=== PATIENT | female | born 1990 | race African-American/Black ===

== ENCOUNTER 2017-02-18 22:43 | Emergency (ER) | payer SELFPAY ==
[~2017-02-18] VITALS: Ht 162.6 cm; Wt 61.2 kg
[2017-02-18] MEDS ORDERED: PRENATAL VITAM1 EACH PO (22:53)
[2017-02-18 23:00] VITALS: BP 130/74
[2017-02-18] MEDS ORDERED: Norco 5mg/325mg tab ORAL ONE (23:15)
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
[2017-02-19 01:05] VITALS: BP 128/73
--- NOTE | 2017-02-22 09:18 | Diagnostic Imaging Report ---
Indication: Head trauma. Headache Technique: Contiguous 5 mm thick transaxial imaging of the head obtained in a Siemens Sensation [address] scanner. Soft tissue and bone windows generated. Total Dose length Product (DLP): [address] Dose Index Volume (CTDIvol): 70.38 mGy Comparison: none Findings: The size and configuration of the cortical sulci, basal cisterns, and ventricles are within normal limits for age. There is no mass effect, midline shift, or edema identified. There is no evidence of acute hemorrhage or abnormal intra-axial or extra-axial fluid collections. Bones are intact. There is swelling of the scalp in the left frontal region. Impression: No mass effect, edema or acute bleed. Scalp contusion The CT scanner at [facility] is accredited by the [employer] and the scans are performed using dose optimization techniques as appropriate to a performed exam including Automatic Exposure control.
== END 2017-02-19 01:05 | disposition home or self-care (01) ==
LOC: EMR 23:14
DX: O26.891 Other specified pregnancy related conditions, first trimester (principal); S01.81XA Laceration without foreign body of other part of head, initial encounter; S00.03XA Contusion of scalp, initial encounter; Y04.2XXA Assault by strike against or bumped into by another person, initial encounter; Y92.410 Unspecified street and highway as the place of occurrence of the external cause; Z88.0 Allergy status to penicillin
CPT/HCPCS: 70450

== ENCOUNTER 2017-04-04 15:35 | Emergency (ER) | payer MEDICAID ==
[~2017-04-04] VITALS: Ht 162.6 cm; Wt 63.5 kg
[~2017-04-04 15:35] MED LIST: PRENATAL VITAM1 EACH PO
[2017-04-04 17:01] VITALS: BP 145/96
[2017-04-04 17:01] LABS: APPEARANCE,URINE CLEAR; KETONES,URINE 1+ (NEGATIVE); LEUKOCYTE ESTERASE ,URINE 1+ (NEGATIVE); NITRITE,URINE NEGATIVE (NEGATIVE); PH,URINE 6 (4.5-8.0); PROTEIN,URINE 3+ (NEGATIVE); UROBILINOGEN,URINE 4 MG/DL (0.0-1.0)
[2017-04-04 17:12] LABS: BASOPHILS % (AUTO) 1.5 % (0.0-2.0); EOSINOPHILS % (AUTO) 1.6 % (0.0-3.0); MEAN CORPUSCULAR HEMOGLOBIN 31.6 PG (27.0-31.0); MEAN CORPUSCULAR HGB CONC 33.8 G/DL (32.0-36.0); MEAN CORPUSCULAR VOLUME 93 FL (80-99); MEAN PLATELET VOLUME 6.2 FL (6.5-10.1); MONOCYTES % (AUTO) 6.7 % (1.0-10.0); NEUTROPHILS % (AUTO) 74.3 % (45.0-75.0); PLATELET COUNT 240 K/UL (150-450); RED BLOOD COUNT 3.52 M/UL (4.20-5.40); RED CELL DISTRIBUTION WIDTH 13.9 % (11.6-14.8); WHITE BLOOD COUNT 6.1 K/UL (4.8-10.8)
[2017-04-04 17:22] LABS: ALANINE AMINOTRANSFERASE 12 U/L (3-33); ANION GAP 10 (5-15); ASPARTATE AMINO TRANSFERASE 19 U/L (5-40); CALCIUM 9.6 mg/dL (8.6-10.2); CARBON DIOXIDE 23 mEQ/L (20-30); CHLORIDE 103 mEQ/L (98-107); CREATININE 0.7 mg/dL (0.5-0.9); GLOMERULAR FILTRATION RATE > 60 mL/min (>60); HEMOLYSIS 1; POTASSIUM 3.7 mEQ/L (3.4-4.9); SODIUM 136 mEQ/L (135-145); TOTAL PROTEIN 6.6 g/dL (6.6-8.7)
[2017-04-04 17:25] LABS: BACTERIA,URINE MODERATE /HPF; ICTOTEST NEGATIVE; SQUAMOUS EPITHELIAL CELL,UR FEW /LPF (NONE/OCC)
[2017-04-04] MEDS ORDERED: KEFLEX250 M1 PO (17:34)
[2017-04-04 17:41] VITALS: BP 145/96
--- NOTE | 2017-04-04 20:27 | Emergency Room Report ---
History of Present Illness General Chief Complaint: Edema Source: Patient Present Illness [facility] The patient is a 18-year-old female presenting for lower, pain and swelling of the extremities. Pt is at 4 months gestation. The patient states that she last had an ultrasound one week prior when symptoms began which was unremarkable. Pain is described as a 4-10 dull ache and does not radiate. No known provoking or relieving factors. She denies nausea, vomiting, fever, chills, abdominal cramping, dysuria, vaginal discharge, vaginal bleeding, constipation, diarrhea, SHERMAN, dizziness, CP, SOB Allergies: Coded Allergies: PENICILLINS (Verified Allergy, Unknown, 12/27/15) Patient History Past Medical History: see triage record Pertinent Family History: none Last Menstrual Period: 10/2016 Now: Yes - 4.5months : 2 Para: 1 Reviewed Nursing Documentation: PMH: Agreed, PSxH: Agreed Nursing Documentation-PMH Past Medical History: No Stated History Review of Systems All Other Systems: negative except mentioned in HPI Physical Exam Vital Signs Date Time Temp Pulse Resp B/P Pulse Ox O2 Delivery O2 Flow Rate FiO2 04/04/17 15:39 98.6 79 14 141/98 98 Room Air Sp02 EP Interpretation: reviewed, normal General Appearance: no apparent distress, alert, GCS 15, non-toxic Head: normocephalic, atraumatic Eyes: bilateral eye PERRL, bilateral eye normal inspection ENT: hearing grossly normal, normal pharynx, no angioedema, normal voice Neck: full range of motion, supple/symm/no masses Respiratory: chest non-tender, lungs clear, normal breath sounds, speaking full sentences Cardiovascular #1: regular rate, rhythm, no edema Gastrointestinal: no guarding, no hernia, no pulsatile mass, no rebound, tenderness - suprapubic Genitourinary: normal inspection, no CVA tenderness Musculoskeletal: back normal, gait/station normal, normal range of motion, non- tender Neurologic: alert, oriented x3, responsive, motor strength/tone normal, sensory intact, speech normal Psychiatric: judgement/insight normal, memory normal, mood/affect normal, no suicidal/homicidal ideation Skin: other - 1+ non pitting edema to bilat hands and feet Lymphatic: no adenopathy Medical Decision Making PA Attestation Dr. Alcaraz is my supervising physician. Patient management was discussed with my supervising physician Diagnostic Impression: Primary Impression: Urinary tract infection during in second trimester, ... ER Course The patient is a 18-year-old female presenting for lower, pain and swelling of the extremities. Differential diagnoses considered include but not limited to UTI, threatened , pre-eclampsia, among others PE: Hypertensive. otherwise unremarkable NAD Abd is soft. TTP over the suprapubic region only. No CVA tenderness. 1+ non pitting edema to bilat hands and feet. RRR. Lungs CTA bilat Urinalysis is consistent with urinary tract infection The patient will be treated with Keflex and is discharged home. She is to follow up with LIQUOR GALLERY OPERATOR CLAUDIA. She was informed of these results including high blood pressure Laboratory Tests Test 04/04/17 16:40 04/04/17 16:47 Urine Color Brown Urine Appearance Clear Urine pH 6 (4.5-8.0) Urine Specific [place] 1.020 (1.005-1.035) Urine Protein 3+ (NEGATIVE) H Urine Glucose (UA) Negative (NEGATIVE) Urine Ketones 1+ (NEGATIVE) H Urine Occult Blood 2+ (NEGATIVE) H Urine Nitrite Negative (NEGATIVE) Urine Bilirubin 1+ (NEGATIVE) H Urine Ictotest Negative Urine Urobilinogen 4 MG/DL (0.0-1.0) H Urine Leukocyte Esterase 1+ (NEGATIVE) H Urine RBC 5-10 /HPF (0 - 2) H Urine WBC 2-4 /HPF (0 - 2) Urine Squamous Epithelial Cells Few /LPF (NONE/OCC) Urine Bacteria Moderate /HPF (NONE) H White Blood Count 6.1 K/UL (4.8-10.8) Red Blood Count 3.52 M/UL (4.20-5.40) L Hemoglobin 11.1 G/DL (12.0-16.0) L Hematocrit 32.9 % (37.0-47.0) L Mean Corpuscular Volume 93 FL (80-99) Mean Corpuscular Hemoglobin 31.6 PG (27.0-31.0) H Mean Corpuscular Hemoglobin Concent 33.8 G/DL (32.0-36.0) Red Cell Distribution Width 13.9 % (11.6-14.8) Platelet Count 240 K/UL (150-450) Mean Platelet Volume 6.2 FL (6.5-10.1) L Neutrophils (%) (Auto) 74.3 % (45.0-75.0) Lymphocytes (%) (Auto) 16.0 % (20.0-45.0) L Monocytes (%) (Auto) 6.7 % (1.0-10.0) Eosinophils (%) (Auto) 1.6 % (0.0-3.0) Basophils (%) (Auto) 1.5 % (0.0-2.0) Sodium Level 136 mEQ/L (135-145) Potassium Level 3.7 mEQ/L (3.4-4.9) Chloride Level 103 mEQ/L (98-107) Carbon Dioxide Level 23 mEQ/L (20-30) Anion Gap 10 (5-15) Blood Urea Nitrogen 11 mg/dL (7-23) Creatinine 0.7 mg/dL (0.5-0.9) Estimate Glomerular Filtration Rate > 60 mL/min (>60) Glucose Level 79 mg/dL (74-106) Calcium Level 9.6 mg/dL (8.6-10.2) Total Bilirubin 0.4 mg/dL (0.0-1.2) Aspartate Amino Transferase (AST) 19 U/L (5-40) Alanine Aminotransferase (ALT) 12 U/L (3-33) Alkaline Phosphatase 36 U/L (35-104) Total Protein 6.6 g/dL (6.6-8.7) Albumin 3.4 g/dL (3.5-5.2) L Globulin 3.2 g/dL Albumin/Globulin Ratio 1.0 (1.0-2.7) Lab Results Impression Consistent with UTI Last Vital Signs Date Time Temp Pulse Resp B/P Pulse Ox O2 Delivery O2 Flow Rate FiO2 04/04/17 17:41 98.5 14 145/96 99 Room Air 04/04/17 17:02 79 Status: improved Disposition: HOME, SELF-CARE Condition: Improved Scripts Cephalexin (Keflex) 250 Mg Capsule 250 MG PO Q6HR, #28 CAP Prov: FARHAT BRIONES 04/04/17 Patient Instructions: and Urinary Tract Infection, Second Trimester of Additional Instructions: I discussed my findings with the patient. All questions and concerns have been answered. Treatment and medication compliance have been addressed. I advised the patient that they need to follow up with PMD in 3-5 days. Return to ED if symptoms worsen, new symptoms arise, or if needed for any reason. Patient verbalized understanding of discharge instructions. Please follow up with FARHAT RIVERA Apr 04, 2017 20:27
== END 2017-04-04 17:42 | disposition home or self-care (01) ==
LOC: EMR 15:51
DX: O23.42 Unspecified infection of urinary tract in pregnancy, second trimester (principal); Z3A.00 Weeks of gestation of pregnancy not specified; Z88.0 Allergy status to penicillin
CPT/HCPCS: 36415; 80053; 81003; 85025; 87086; 99283

== ENCOUNTER 2018-03-28 18:54 | Emergency (ER) | payer MEDICAID ==
[~2018-03-28] VITALS: Ht 162.6 cm; Wt 66.2 kg
[~2018-03-28 18:54] MED LIST changes: +KEFLEX250 M1 PO
--- NOTE | 2018-03-28 19:36 | Emergency Room Report ---
History of Present Illness General Chief Complaint: Complications Source: Patient Present Illness HPI 27-year-old female, , one miscarriage, 13 wks p/w vaginal bleeding x 1 days Patient states bleeding began day, only spotting, no passage of clots. + Mild crampy abdominal pain. Denies fever, chills, n/v, diarrhea, dysuria. Last sono was performed in the last 3 weeks which showed IUP with good FHR. Denies hx of ectopic pregnancies. Patient also noted to have slightly high blood pressure. She states that she had preeclampsia and her last . Allergies: Coded Allergies: PENICILLINS (Verified Allergy, Unknown, 12/27/15) Patient History Past Medical History: see triage record Past Surgical History: none Pertinent Family History: none Last Menstrual Period: 01/11 Now: Yes : 3 Para: 1 Reviewed Nursing Documentation: PMH: Agreed; PSxH: Agreed Nursing Documentation-PMH Past Medical History: No History, Except For Review of Systems All Other Systems: negative except mentioned in HPI Physical Exam Vital Signs Date Time Temp Pulse Resp B/P (MAP) Pulse Ox O2 Delivery O2 Flow Rate FiO2 03/28/18 18:59 98.4 86 17 152/92 96 Room Air 98.4 Sp02 EP Interpretation: reviewed, normal General Appearance: alert, GCS 15, non-toxic, mild distress Head: normocephalic, atraumatic Eyes: bilateral eye normal inspection, bilateral eye PERRL, bilateral eye EOMI ENT: normal ENT inspection, normal pharynx, normal voice, moist mucus membranes Neck: normal inspection, full range of motion, supple Respiratory: normal inspection, lungs clear, normal breath sounds, no respiratory distress, no retraction, no wheezing, speaking full sentences, chest symmetrical Cardiovascular #1: normal inspection, regular rate, rhythm, no edema, normal capillary refill Cardiovascular #2: 2+ radial (R), 2+ radial (L) Gastrointestinal: other - Gravid, nontender throughout no guarding or rigidity Musculoskeletal: normal inspection, back normal, normal range of motion, non- tender Neurologic: normal inspection, alert, oriented x3, responsive, motor strength/ tone normal, sensory intact, normal gait, speech normal Psychiatric: normal inspection, judgement/insight normal, memory normal Skin: normal inspection, normal color, no rash, warm/dry, well hydrated, normal turgor Medical Decision Making Diagnostic Impression: Primary Impression: Anemia Additional Impressions: High blood pressure Urinary tract infection during in second trimester, antepartum Vaginal bleeding during ER Course 27-year-old female 13 presents with vaginal bleeding DDX: Threatened / inevitable vs. ectopic Plan: cbc, bmp, bhcg, type and screen, ua, ucx pelvic sono Consider Rhogam is Rh- ER course: Blood pressure improved Pelvic sono: IUP with good FHR. Pt remains stable/nontoxic appearing in ED. Minimal vaginal bleeding in ED. Pt has been ambulatory. VSS Patient noted to have some mild anemia, patient denies any syncopal episodes no increasing fatigue. She states that her doctor has been running tests for her anemia. She was also noted to be hypertensive with a systolic of 150, currently asymptomatic no headache no blurry vision. I told her that she must follow-up with her ENGINEER TECHNICAL STAFF for this blood pressure Disposition: Patient will be discharged to home. Strict return precautions to discussed with patient such as high fever, chills, headache, abdominal pain, intractable nausea or vomiting, worsening/heavy bleeding, lightheadedness or syncope. Patient verbalized understanding. Patient instructed to follow up with her OBGYN in 2-3 days without fail. Patient agrees with plan. Please note that this Emergency Department Report was dictated using [employer] tender concrete mixing plant technology software, occasionally this can lead to erroneous entry secondary to interpretation by the dictation equipment. Laboratory Tests Test 03/28/18 19:06 03/28/18 19:30 Urine Color Yellow Urine Appearance Slightly cloudy Urine pH 6 (4.5-8.0) Urine Specific [place] 1.015 (1.005-1.035) Urine Protein 1+ (NEGATIVE) H Urine Glucose (UA) Negative (NEGATIVE) Urine Ketones 4+ (NEGATIVE) H Urine Occult Blood Negative (NEGATIVE) Urine Nitrite Negative (NEGATIVE) Urine Bilirubin Negative (NEGATIVE) Urine Urobilinogen Normal MG/DL (0.0-1.0) Urine Leukocyte Esterase 1+ (NEGATIVE) H Urine RBC 0-2 /HPF (0 - 2) Urine WBC 5-10 /HPF (0 - 2) H Urine Squamous Epithelial Cells Many /LPF (NONE/OCC) H Urine Bacteria Few /HPF (NONE) Urine HCG, Qualitative Positive (NEGATIVE) White Blood Count 7.7 K/UL (4.8-10.8) Red Blood Count 3.58 M/UL (4.20-5.40) L Hemoglobin 9.9 G/DL (12.0-16.0) L Hematocrit 30.7 % (37.0-47.0) L Mean Corpuscular Volume 86 FL (80-99) Mean Corpuscular Hemoglobin 27.8 PG (27.0-31.0) Mean Corpuscular Hemoglobin Concent 32.4 G/DL (32.0-36.0) Red Cell Distribution Width 14.3 % (11.6-14.8) Platelet Count 262 K/UL (150-450) Mean Platelet Volume 5.8 FL (6.5-10.1) L Neutrophils (%) (Auto) 79.9 % (45.0-75.0) H Lymphocytes (%) (Auto) 13.5 % (20.0-45.0) L Monocytes (%) (Auto) 5.9 % (1.0-10.0) Eosinophils (%) (Auto) 0.1 % (0.0-3.0) Basophils (%) (Auto) 0.6 % (0.0-2.0) Sodium Level 134 MMOL/L (136-145) L Potassium Level 3.2 MMOL/L (3.5-5.1) L Chloride Level 103 MMOL/L (98-107) Carbon Dioxide Level 23 MMOL/L (21-32) Anion Gap 8 mmol/L (5-15) Blood Urea Nitrogen 7 mg/dL (7-18) Creatinine 0.5 MG/DL (0.55-1.30) L Estimate Glomerular Filtration Rate > 60 mL/min (>60) Glucose Level 81 MG/DL (74-106) Calcium Level 8.7 MG/DL (8.5-10.1) Total Bilirubin 0.3 MG/DL (0.2-1.0) Aspartate Amino Transferase (AST) 20 U/L (15-37) Alanine Aminotransferase (ALT) 17 U/L (12-78) Alkaline Phosphatase 44 U/L (46-116) L Total Protein 7.5 G/DL (6.4-8.2) Albumin 3.2 G/DL (3.4-5.0) L Globulin 4.3 g/dL Albumin/Globulin Ratio 0.7 (1.0-2.7) L Lipase 89 U/L (73-393) Human Chorionic Gonadotropin, Quant Pending CT/MRI/US Diagnostic Results CT/MRI/US Diagnostic Results : Imaging Test Ordered: PELVIC US Last Vital Signs Date Time Temp Pulse Resp B/P (MAP) Pulse Ox O2 Delivery O2 Flow Rate FiO2 03/28/18 18:59 98.4 86 17 152/92 96 Room Air 98.4 Disposition: HOME, SELF-CARE Condition: Improved Chen Platt M.D. Mar 28, 2018 19:36
[2018-03-28 19:45] LABS: BASOPHILS % (AUTO) 0.6 % (0.0-2.0); EOSINOPHILS % (AUTO) 0.1 % (0.0-3.0); HEMATOCRIT 30.7 % (37.0-47.0); HEMOGLOBIN 9.9 G/DL (12.0-16.0); LYMPHOCYTES % (AUTO) 13.5 % (20.0-45.0); MEAN CORPUSCULAR VOLUME 86 FL (80-99); MONOCYTES % (AUTO) 5.9 % (1.0-10.0); NEUTROPHILS % (AUTO) 79.9 % (45.0-75.0); PLATELET COUNT 262 K/UL (150-450); RED BLOOD COUNT 3.58 M/UL (4.20-5.40); RED CELL DISTRIBUTION WIDTH 14.3 % (11.6-14.8); WHITE BLOOD COUNT 7.7 K/UL (4.8-10.8)
[2018-03-28 20:11] LABS: ANION GAP 8 mmol/L (5-15); BLOOD UREA NITROGEN 7 mg/dL (7-18); CALCIUM 8.7 MG/DL (8.5-10.1); CARBON DIOXIDE 23 MMOL/L (21-32); CHLORIDE 103 MMOL/L (98-107); CREATININE 0.5 MG/DL (0.55-1.30); POTASSIUM 3.2 MMOL/L (3.5-5.1); SODIUM 134 MMOL/L (136-145)
[2018-03-28 20:16] LABS: ALANINE AMINOTRANSFERASE 17 U/L (12-78); ALBUMIN 3.2 G/DL (3.4-5.0); ALBUMIN/GLOBULIN RATIO 0.7 (1.0-2.7); ALKALINE PHOSPHATASE 44 U/L (46-116); ASPARTATE AMINO TRANSFERASE 20 U/L (15-37); BILIRUBIN,TOTAL 0.3 MG/DL (0.2-1.0)
[2018-03-28 20:26] LABS: APPEARANCE,URINE SLIGHTLY CLOUDY; BILIRUBIN, URINE NEGATIVE (NEGATIVE); GLUCOSE, URINE (UA) NEGATIVE (NEGATIVE); KETONES,URINE 4+ (NEGATIVE); LEUKOCYTE ESTERASE ,URINE 1+ (NEGATIVE); NITRITE,URINE NEGATIVE (NEGATIVE); PH,URINE 6 (4.5-8.0); PROTEIN,URINE 1+ (NEGATIVE); UROBILINOGEN,URINE NORMAL MG/DL (0.0-1.0)
[2018-03-28 20:27] LABS: COLOR,URINE YELLOW
[2018-03-28 21:47] VITALS: BP 122/89
--- NOTE | 2018-03-30 14:15 | Diagnostic Imaging Report ---
Indications: Abdominal pain during . Technique: Transabdominal real-time grayscale and duplex Doppler imaging of intrauterine was performed. Findings: Comparison: None. A single live intrauterine is noted with heart rate of approximately 150 bpm. heart tones and spontaneous movement is noted on cine loops. Composite gestational age by ultrasound of approximately 13 weeks and 3 days. Please note that this is a limited exam and anatomy is not well evaluated. Cervix appears closed. Ovaries not identified. IMPRESSION: Angel live intrauterine with composite gestational age by ultrasound approximately 10 weeks, 3 days. heart rate of approximately 150 bpm. Note: A negative ultrasound evaluation does not insure well-being or positive outcome for the . Clinical evaluation by CHIEF CRUISER is highly recommended.
== END 2018-03-28 21:47 | disposition home or self-care (01) ==
LOC: EMR 20:23
DX: O20.9 Hemorrhage in early pregnancy, unspecified (principal); Z3A.13 13 weeks gestation of pregnancy; O99.011 Anemia complicating pregnancy, first trimester; D64.9 Anemia, unspecified; O23.41 Unspecified infection of urinary tract in pregnancy, first trimester; O26.891 Other specified pregnancy related conditions, first trimester; R03.0 Elevated blood-pressure reading, without diagnosis of hypertension; Z88.0 Allergy status to penicillin
CPT/HCPCS: 36415; 76801; 76830; 80053; 81003; 81025; 83690; 84702; 85025; 86850; 86900; 86901; 99284

== ENCOUNTER 2018-04-17 23:20 | Emergency (ER) | payer MEDICAID ==
[~2018-04-17] VITALS: Ht 162.6 cm; Wt 65.8 kg
--- NOTE | 2018-04-17 23:47 | Emergency Room Report ---
History of Present Illness General Chief Complaint: Abdominal Pain Source: Patient Present Illness HPI Patient presents with complaints of lower suprapubic cramping Patient reports that she is approximately 16 weeks Her last ultrasound was 4 weeks ago which showed 12 week Denies any vomiting or diarrhea patient reports that she also Saw some spotting earlier today Denies any dysuria or frequency Denies any flank pain Allergies: Coded Allergies: PENICILLINS (Verified Allergy, Unknown, 12/27/15) Patient History Past Medical History: see triage record Pertinent Family History: none Last Menstrual Period: 12/2017 Now: Yes : 3 Para: 1 Reviewed Nursing Documentation: PMH: Agreed; PSxH: Agreed Nursing Documentation-PMH Hx Hypertension: Yes Review of Systems All Other Systems: negative except mentioned in HPI Physical Exam Vital Signs Date Time Temp Pulse Resp B/P (MAP) Pulse Ox O2 Delivery O2 Flow Rate FiO2 04/17/18 23:28 98.4 93 14 128/87 98 Room Air 98.4 Sp02 EP Interpretation: reviewed, normal General Appearance: well appearing, no apparent distress Head: normocephalic, atraumatic Eyes: bilateral eye PERRL, bilateral eye EOMI ENT: hearing grossly normal, normal pharynx, TMs + canals normal, uvula midline Neck: full range of motion, supple, no meningismus, no bony tend Respiratory: lungs clear, normal breath sounds, no rhonchi, no respiratory distress, no retraction, no accessory muscle use Cardiovascular #1: normal peripheral pulses, regular rate, rhythm, no edema, no gallop, no JVD, no murmur Gastrointestinal: normal bowel sounds, non tender, non-distended, no guarding, no hernia, no pulsatile mass, no rebound, other - Gravid abdomen is palpable, nontender on exam Genitourinary: no CVA tenderness Musculoskeletal: normal inspection Neurologic: oriented x3, responsive, screen machine operator III-XII nml as tested, motor strength/ tone normal, sensory intact Psychiatric: mood/affect normal Skin: normal color, no rash, warm/dry, palpation normal Lymphatic: normal inspection, no adenopathy Medical Decision Making Diagnostic Impression: Primary Impression: Threatened miscarriage Additional Impressions: Urinary tract infection during in second trimester, antepartum Vaginal bleeding during ER Course Multiple differentials considered Patient is complex requiring further intervention and care Urine sample does show evidence of UTI Patient's bedside ultrasound reveals intrauterine with heart tones at 130 beats a minute At this time patient requires oral antibiotics and close outpatient follow-up Labs Test 04/17/18 23:45 Urine Color Pale yellow Urine Appearance Clear Urine pH 5 (4.5-8.0) Urine Specific [place] 1.025 (1.005-1.035) Urine Protein 1+ (NEGATIVE) Urine Glucose (UA) Negative (NEGATIVE) Urine Ketones Negative (NEGATIVE) Urine Occult Blood 3+ (NEGATIVE) Urine Nitrite Negative (NEGATIVE) Urine Bilirubin Negative (NEGATIVE) Urine Urobilinogen Normal MG/DL (0.0-1.0) Urine Leukocyte Esterase 2+ (NEGATIVE) Urine RBC 5-10 /HPF (0 - 2) Urine WBC 10-15 /HPF (0 - 2) Urine Squamous Epithelial Cells Many /LPF (NONE/OCC) Urine Bacteria Few /HPF (NONE) Last Vital Signs Date Time Temp Pulse Resp B/P (MAP) Pulse Ox O2 Delivery O2 Flow Rate FiO2 04/17/18 23:28 98.4 93 14 128/87 98 Room Air 98.4 Status: improved Disposition: HOME, SELF-CARE Condition: Stable Scripts Nitrofurantoin Monohyd/M-Cryst* (MACROBID 100 MG*) 100 Mg Capsule 100 MG ORAL EVERY 12 HOURS for 7 Days, CAP Prov: Tina Owens DO 04/18/18 Additional Instructions: Patient is provided with the discharge instructions notified to follow up with primary doctor in the next 2-3 days otherwise return to the er with any worsening symptoms. Please note that this report is being documented using [employer] technology. This can lead to erroneous entry secondary to incorrect interpretation by the dictating instrument. Tina Owens DO Apr 17, 2018 23:47
[2018-04-17 23:54] VITALS: BP 128/87
[2018-04-18 00:01] LABS: APPEARANCE,URINE CLEAR; BILIRUBIN, URINE NEGATIVE (NEGATIVE); COLOR,URINE PALE YELLOW; GLUCOSE, URINE (UA) NEGATIVE (NEGATIVE); KETONES,URINE NEGATIVE (NEGATIVE); LEUKOCYTE ESTERASE ,URINE 2+ (NEGATIVE); NITRITE,URINE NEGATIVE (NEGATIVE); PH,URINE 5 (4.5-8.0); PROTEIN,URINE 1+ (NEGATIVE); UROBILINOGEN,URINE NORMAL MG/DL (0.0-1.0)
[2018-04-18 00:50] VITALS: BP 128/87
[2018-04-18] MEDS ORDERED: NITROFURANTOIN100 M2 ORAL (00:52)
== END 2018-04-18 01:00 | disposition home or self-care (01) ==
LOC: EMR 23:42
DX: O20.0 Threatened abortion (principal); O23.42 Unspecified infection of urinary tract in pregnancy, second trimester; Z3A.16 16 weeks gestation of pregnancy; Z88.0 Allergy status to penicillin; I10 Essential (primary) hypertension
CPT/HCPCS: 81003; 87086; 99283

== ENCOUNTER 2020-12-11 14:47 | Emergency (ER) | payer MEDICAID ==
[~2020-12-11] VITALS: Ht 167.6 cm; Wt 71.7 kg
[~2020-12-11 14:47] MED LIST changes: +ACETAMINOPHEN-1 EAC1 ORAL; +IBUPROFEN600 MG ORAL; +NITROFURANTOIN100 M2 ORAL; +NKM
[2020-12-11] MEDS: cefTRIAXone 500mg Inj IV ONE (15:58)
[2020-12-11] MEDS: Azithromycin 250mg tab ORAL ONE (15:58)
[2020-12-11 16:54] LABS: BASOPHILS % (AUTO) 1.6 % (0.0-2.0); EOSINOPHILS % (AUTO) 0.8 % (0.0-3.0); HEMATOCRIT 42.5 % (37.0-47.0); HEMOGLOBIN 13.4 G/DL (12.0-16.0); LYMPHOCYTES % (AUTO) 30.4 % (20.0-45.0); MEAN CORPUSCULAR VOLUME 93 FL (80-99); MONOCYTES % (AUTO) 6.7 % (1.0-10.0); NEUTROPHILS % (AUTO) 60.5 % (45.0-75.0); PLATELET COUNT 242 K/UL (150-450); RED BLOOD COUNT 4.56 M/UL (4.20-5.40); RED CELL DISTRIBUTION WIDTH 14.1 % (11.6-14.8); WHITE BLOOD COUNT 4.1 K/UL (4.8-10.8)
[2020-12-11 16:57] LABS: APPEARANCE,URINE CLEAR; BILIRUBIN, URINE NEGATIVE (NEGATIVE); COLOR,URINE PALE YELLOW; GLUCOSE, URINE (UA) NEGATIVE (NEGATIVE); KETONES,URINE 1+ (NEGATIVE); LEUKOCYTE ESTERASE ,URINE 1+ (NEGATIVE); NITRITE,URINE NEGATIVE (NEGATIVE); PH,URINE 7 (4.5-8.0); PROTEIN,URINE NEGATIVE (NEGATIVE); UROBILINOGEN,URINE NORMAL MG/DL (0.0-1.0)
[2020-12-11 17:03] LABS: ALANINE AMINOTRANSFERASE 29 U/L (12-78); ALBUMIN 4.4 G/DL (3.4-5.0); ALBUMIN/GLOBULIN RATIO 1.2 (1.0-2.7); ALKALINE PHOSPHATASE 57 U/L (46-116); ANION GAP 11 mmol/L (5-15); ASPARTATE AMINO TRANSFERASE 24 U/L (15-37); BILIRUBIN,TOTAL 0.7 MG/DL (0.2-1.0); BLOOD UREA NITROGEN 9 mg/dL (7-18); CALCIUM 9.8 MG/DL (8.5-10.1); CARBON DIOXIDE 26 MMOL/L (21-32); CHLORIDE 104 MMOL/L (98-107); CREATININE 0.8 MG/DL (0.55-1.30); SODIUM 141 MMOL/L (136-145)
--- NOTE | 2020-12-11 17:33 | Diagnostic Imaging Report ---
Indication: Abdominal pain Technique: Dupont-scale and duplex images of the upper abdomen were obtained Comparison: none Findings: Unremarkable inferior vena cava. Gallbladder demonstrates wall edema. Nonshadowing echogenic foci, at least 3 in number, readily representing polyps. No definite calculi. Sonographic Davison's sign is negative. Common bile duct measures 3 mm in diameter. No intrahepatic biliary ductal dilatation. Liver demonstrates normal echogenicity, no focal abnormality. Portal vein and hepatic veins are patent. Pancreas is unremarkable. Spleen is unremarkable. Left kidney measures 11.8 cm in length. Right kidney measures 10.3 cm length. Both kidneys demonstrate normal echogenicity. There is no hydronephrosis. No focal abnormality . Non-aneurysmal abdominal aorta . Impression: Multiple gallbladder polyps Negative for gallstones or dilated bile ducts No other significant abnormality
[2020-12-11] MEDS ORDERED: Omnipaque 350 100ml vial INJ PRN ×2 (17:45→18:00)
[2020-12-11 18:16] VITALS: BP 140/85
--- NOTE | 2020-12-11 18:17 | NUR ---
Pt resting in bed with no current complaints of pain at this time. Pt in a semi-fowlers position on her cell phone with no SS of distress noted, VSS, respirations even and unlabored, skin signs normal, no c/o nausea or SHERMAN. Awaiting results of CT.
--- NOTE | 2020-12-11 18:39 | Diagnostic Imaging Report ---
EXAM: CT Angiography Head Without and With Intravenous Contrast CLINICAL HISTORY: Pain TECHNIQUE: Axial computed tomographic angiography images of the head without and with intravenous contrast. CTDI is 53.4 mGy and DLP is 3050.6 mGy-cm. One or more of the following dose reduction techniques were used: automated exposure control, adjustment of the mA and/or kV according to patient size, use of iterative reconstruction technique. MIP reconstructed images were created and reviewed. COMPARISON: CT head 02/18/2017 FINDINGS: VASCULATURE: Right internal carotid artery: No acute findings. Intracranial segment is patent with no significant stenosis. No aneurysm. Right anterior cerebral artery: Unremarkable. No occlusion or significant stenosis. No aneurysm. Right middle cerebral artery: Unremarkable. No occlusion or significant stenosis. No aneurysm. Right posterior cerebral artery: Unremarkable. No occlusion or significant stenosis. No aneurysm. Right vertebral artery: Unremarkable as visualized. Left internal carotid artery: No acute findings. Intracranial segment is patent with no significant stenosis. No aneurysm. Left anterior cerebral artery: Unremarkable. No occlusion or significant stenosis. No aneurysm. Left middle cerebral artery: Unremarkable. No occlusion or significant stenosis. No aneurysm. Left posterior cerebral artery: Unremarkable. No occlusion or significant stenosis. No aneurysm. Left vertebral artery: Unremarkable as visualized. Basilar artery: Unremarkable. No occlusion or significant stenosis. No aneurysm. HEAD: Brain: No intracranial hemorrhage, mass effect or malacia. There is no abnormal extra axial fluid collection. No evidence of acute infarct. Ventricles: Unremarkable. No ventriculomegaly. Bones/joints: No acute fracture. Soft tissues: Unremarkable. Sinuses: Unremarkable as visualized. No acute sinusitis. Mastoid air cells: Unremarkable as visualized. No mastoid effusion. IMPRESSION: No acute findings in the arteries of the head/brain.
--- NOTE | 2020-12-11 19:14 | Emergency Room Report ---
History of Present Illness General Chief Complaint: Headache Source: Patient Present Illness HPI 29-year-old female with no signal past medical history who is A1 here complaining of sudden onset of posterior headache without radiation and nausea vomiting that started 1 day ago. Patient reports that she was first nauseated and vomiting 3 days ago and later started with headache. Denies head injury or loss of consciousness. Also reports that for the past 2 weeks she has been spotting and has been having yellow vaginal discharge. Patient was last sexually active ago. Does not use any protection and does not take any control. Denies urinary symptoms. Reports that her last menstrual. Was on November 09 and regular. Denies fever and chills, neck stiffness, no other URI symptoms. Denies blurred vision. Reports that the headache is in the occipital area without any radiation. Has not taken medication for symptom relief. Denies tobacco smoke, drug use, alcohol intake. Also complains of diffuse abdominal pain. Denies diarrhea or constipation. Denies bloody emesis. Patient is neurovascularly intact, no unilateral or generalized weakness noted Allergies: Coded Allergies: PENICILLINS (Verified Allergy, Unknown, 02/16/19) COVID-19 Screening Contact w/high risk pt: No Experienced COVID-19 symptoms?: No COVID-19 Testing performed CLIENT SERVICE PROFESSIONAL: No COVID-19 Screening: Negative COVID-19 Patient History Past Medical History: see triage record Past Surgical History: none Pertinent Family History: none Now: No Immunizations: UTD Reviewed Nursing Documentation: PMH: Agreed; PSxH: Agreed Nursing Documentation-PMH Hx Cardiac Problems: No Hx Hypertension: No Hx Pacemaker: No Hx Asthma: No Hx COPD: No Hx Diabetes: No Hx Cancer: No Hx Gastrointestinal Problems: No Hx Dialysis: No History Of Psychiatric Problem: No Hx Neurological Problems: No Hx Cerebrovascular Accident: No Hx Seizures: No Review of Systems All Other Systems: negative except mentioned in HPI Physical Exam Vital Signs Date Time Temp Pulse Resp B/P (MAP) Pulse Ox O2 Delivery O2 Flow Rate FiO2 12/11/20 15:12 98.2 74 18 152/104 (120) 95 Room Air Sp02 EP Interpretation: reviewed, normal General Appearance: no apparent distress, alert, GCS 15, non-toxic Head: normocephalic, atraumatic Eyes: bilateral eye normal inspection, bilateral eye PERRL ENT: hearing grossly normal, normal pharynx, no angioedema, normal voice Neck: full range of motion, supple, thyroid normal, no meningismus, no bony tend, supple/symm/no masses Respiratory: chest non-tender, lungs clear, normal breath sounds, no rhonchi, no respiratory distress, no retraction, no accessory muscle use, no wheezing Cardiovascular #1: regular rate, rhythm, no edema, no murmur Cardiovascular #2: 2+ carotid (R), 2+ carotid (L), 2+ radial (R), 2+ radial (L), 2+ dorsalis pedis (R), 2+ dorsalis pedis (L) Gastrointestinal: non tender, soft, no organomegaly, no bruit Rectal: deferred Genitourinary: no CVA tenderness Musculoskeletal: back normal Neurologic: alert, motor strength/tone normal, oriented x3, sensory intact, responsive, speech normal Psychiatric: judgement/insight normal, memory normal, mood/affect normal, no suicidal/homicidal ideation Skin: no rash Lymphatic: no adenopathy Medical Decision Making PA Attestation All my diagnosis and treatment plans were reviewed ad discussed with my supervising physician Dr. Hernandes Diagnostic Impression: Primary Impression: Tension headache Additional Impressions: Cholelithiases Vaginitis ER Course 29-year-old female with no signal past medical history who is A1 here complaining of sudden onset of posterior headache without radiation and nausea vomiting that started 1 day ago. Patient reports that she was first nauseated and vomiting 3 days ago and later started with headache. Denies head injury or loss of consciousness. Also reports that for the past 2 weeks she has been spotting and has been having yellow vaginal discharge. Patient was last sexually active ago. Does not use any protection and does not take any control. Denies urinary symptoms. Reports that her last menstrual. Was on November 09 and regular. Denies fever and chills, neck stiffness, no other URI symptoms. Denies blurred vision. Reports that the headache is in the occipital area without any radiation. Has not taken medication for symptom relief. Denies tobacco smoke, drug use, alcohol intake. Also complains of diffuse abdominal pain. Denies diarrhea or constipation. Denies bloody emesis. Patient is neurovascularly intact, no unilateral or generalized weakness noted Ddx considered but are not limited to: Migraine headache with aura, migraine headache without aura, tension headache, cluster headache, TBI, subarachnoid hemorrhage Vital signs: are WNL, pt. is afebrile H&PE are most consistent with: Tension headache, cholelithiasis, treatment for chlamydia and gonorrhea ORDERS: CT head brain, abdominal ultrasound, CBC, CMP, UA, tox screen, test, Excedrin, Motrin ER intervention: NS bolus, Tylenol, Rocephin, azithromycin DISCHARGE: At this time pt. is stable for d/c to home. Will provide printed patient care instructions, and any necessary prescriptions. Care plan and follow up instructions have been discussed with the patient prior to discharge. Take medication as directed, increase oral hydration, worsening symptom return to the emergency room CT/MRI/US Diagnostic Results CT/MRI/US Diagnostic Results #1: Imaging Test Ordered: CTA brain Impression COMPARISON: CT head 02/18/2017 FINDINGS: VASCULATURE: Right internal carotid artery: No acute findings. Intracranial segment is patent with no significant stenosis. No aneurysm. Right anterior cerebral artery: Unremarkable. No occlusion or significant stenosis. No aneurysm. Right middle cerebral artery: Unremarkable. No occlusion or significant stenosis. No aneurysm. Right posterior cerebral artery: Unremarkable. No occlusion or significant stenosis. No aneurysm. Right vertebral artery: Unremarkable as visualized. Left internal carotid artery: No acute findings. Intracranial segment is patent with no significant stenosis. No aneurysm. Left anterior cerebral artery: Unremarkable. No occlusion or significant stenosi s. No aneurysm. Left middle cerebral artery: Unremarkable. No occlusion or significant stenosis. No aneurysm. Left posterior cerebral artery: Unremarkable. No occlusion or significant stenosis. No aneurysm. Left vertebral artery: Unremarkable as visualized. Basilar artery: Unremarkable. No occlusion or significant stenosis. No aneurysm. HEAD: Brain: No intracranial hemorrhage, mass effect or malacia. There is no abnormal extra axial fluid collection. No evidence of acute infarct. Ventricles: Unremarkable. No ventriculomegaly. Bones/joints: No acute fracture. Soft tissues: Unremarkable. Sinuses: Unremarkable as visualized. No acute sinusitis. Mastoid air cells: Unremarkable as visualized. No mastoid effusion. IMPRESSION: No acute findings in the arteries of the head/brain. CT/MRI/US Diagnostic Results #2: Imaging Test Ordered: Abdominal ultrasound Impression Findings: Unremarkable inferior vena cava. Gallbladder demonstrates wall edema. Nonshadowing echogenic foci, at least 3 in number, readily representing polyps. No definite calculi. Sonographic Davison's sign is negative. Common bile duct measures 3 mm in diameter. No intrahepatic biliary ductal dilatation. Liver demonstrates normal echogenicity, no focal abnormality. Portal vein and hepatic veins are patent. Pancreas is unremarkable. Spleen is unremarkable. Left kidney measures 11.8 cm in length. Right kidney measures 10.3 cm length. Both kidneys demonstrate normal echogenicity. There is no hydronephrosis. No focal abnormality . Non-aneurysmal abdominal aorta . Impression: Multiple gallbladder polyps Negative for gallstones or dilated bile ducts No other significant abnormalityGallbladder polyps Last Vital Signs Date Time Temp Pulse Resp B/P (MAP) Pulse Ox O2 Delivery O2 Flow Rate FiO2 12/11/20 18:16 98.8 73 16 140/85 100 Room Air Disposition: HOME, SELF-CARE Condition: Stable Referrals: NON PHYSICIAN (PCP) Patient Instructions: Cholelithiasis, [id number], Tension Headache, Vag initis, [id number] Additional Instructions: Take medication as directed, follow primary care provider, good oral hydration, worsening symptom return to the emergency Kala Carson Dec 11, 2020 19:14
[2020-12-11] MEDS ORDERED: FLUCONAZOLE150 MG ORAL (19:16)
[2020-12-11] MEDS ORDERED: IBUPROFEN600 M1 ORAL (19:16)
[2020-12-11] MEDS ORDERED: EXCEDRIN EXTRA1 EAC1 PO (19:16)
== END 2020-12-11 19:24 | disposition home or self-care (01) ==
LOC: EMR 15:40
DX: G44.209 Tension-type headache, unspecified, not intractable (principal); K80.20 Calculus of gallbladder without cholecystitis without obstruction; N76.0 Acute vaginitis; Z88.0 Allergy status to penicillin
CPT/HCPCS: 36415; 70496; 76700; 80053; 80307; 81003; 84702; 85025; 96361; 96374; J0696; J7030; Q0144; Q9967; Z7502; 99284